=== PATIENT | male | born 1995 | race Caucasian/White ===

== ENCOUNTER → 2016-11-17 | Outpatient (CLI) | payer OTHER ==
--- NOTE | 2016-11-17 12:58 | DIAGNOSTIC IMAGING REPORT ---
RIGHT ANKLE MIN 3 VIEWS CLINICAL HISTORY: Right ankle pain. COMPARISON: None FINDINGS: Alignment of the right ankle is anatomic. Talar dome is intact. There is mild lateral ankle soft tissue swelling. No acute fracture is identified. There is cortical irregularity of the lateral distal right tibia with extensive calcific/ossific density that projects over the syndesmosis. IMPRESSION: 1. No acute fracture or dislocation of the right ankle. 2. Cortical irregularity of the distal lateral right tibia with associated calcific/ossific density which projects over the distal tibiofibular syndesmosis. The findings suggest an old syndesmotic injury. Please correlate with prior traumatic history. Although considered much less likely, a neoplastic etiology is within the differential in the absence of prior trauma in which case orthopedic consultation is recommended. Electronically signed by: Sami Mckeon M.D. 11/17/2016 12:56 PM Dictated Date/Time: 11/17/2016 12:49 PM
== END | disposition home or self-care (01) ==
LOC: C.RDSM 11:00
PROVIDERS: ATTEND Family Medicine
DX: M25.571 Pain in right ankle and joints of right foot (principal); R93.7 Abnormal findings on diagnostic imaging of other parts of musculoskeletal system

== ENCOUNTER → 2017-02-09 | Outpatient (CLI) | payer OTHER ==
--- NOTE | 2017-02-09 15:37 | DIAGNOSTIC IMAGING REPORT ---
ULTRASOUND LEFT LOWER EXTREMITY VENOUS CLINICAL HISTORY: Left leg pain and swelling. COMPARISON STUDY: No priors. TECHNIQUE: Real-time, grayscale, and color Doppler sonography of the deep veins of the left lower extremity was performed from the inguinal crease to the calf. Compression and augmentation were utilized. FINDINGS: There is age indeterminant nonocclusive thrombus seen extending from the left common femoral vein to the popliteal vein. The greater saphenous vein at the junction with the common femoral vein is clear. The visualized calf veins are patent. IMPRESSION: There is extensive and age-indeterminant nonocclusive deep venous thrombosis identified in the left lower extremity which extends from the common femoral vein to the popliteal vein. Electronically signed by: Bronsno Bonilla M.D. 02/09/2017 3:34 PM Dictated Date/Time: 02/09/2017 3:33 PM
== END | disposition home or self-care (01) ==
LOC: C.ULTR 14:42
PROVIDERS: ATTEND Family Medicine
DX: R61 Generalized hyperhidrosis (principal); I82.412 Acute embolism and thrombosis of left femoral vein